=== PATIENT | female | born 2000 | race Two or more races ===

== ENCOUNTER 2022-08-22 07:44 | Emergency (ER) | payer BC ==
[~2022-08-22] VITALS: Ht 160 cm; Wt 68.9 kg
--- NOTE | 2022-08-22 08:10 | NUR ---
PT IN BED 7, C/O DIZZINESS, REPORTED BY FIRE THAT SYNCOPE LASTED FOR 40 SEC. 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 HOOKED UP TO BEDSIDE MONITOR. VITAL WNL. BG [id number]
--- NOTE | 2022-08-22 08:15 | NUR ---
NS 500ML BAG
--- NOTE | 2022-08-22 09:40 | NUR ---
IV removed. Catheter intact and site benign. Pressure and 4x4 applied to site. No bleeding noted.
--- NOTE | 2022-08-22 09:51 | NUR ---
Patient discharged to home in stable condition. Written and verbal after care instructions given. Patient verbalizes understanding of instruction.
[2022-08-22 10:27] VITALS: BP 120/65
== END 2022-08-22 10:31 | disposition home or self-care (01) ==
LOC: ER 07:50
DX: R55 Syncope and collapse (principal)
CPT/HCPCS: 82962-TC